=== PATIENT | female | born 2000 | race Caucasian/White ===

== ENCOUNTER 2020-05-22 14:47 | Emergency (ER) | payer OTHER ==
[~2020-05-22] VITALS: Ht 167.6 cm; Wt 96.4 kg
[2020-05-22 15:22] VITALS: TEMP 97.2
[2020-05-22] MEDS ORDERED: PROZAC40 MG PO (16:33)
[2020-05-22] MEDS ORDERED: PERCOCET 325 MG1 TA2 PO (17:34)
[2020-05-22] MEDS ORDERED: CRUTCHES MC (17:42)
[2020-05-22 18:01] VITALS: BP 123/72; PULSE 90
== END 2020-05-22 18:05 | disposition home or self-care (01) ==
LOC: COL.ER 14:47
DX: S82.842A Displaced bimalleolar fracture of left lower leg, initial encounter for closed fracture (principal); W17.89XA Other fall from one level to another, initial encounter; Y93.39 Activity, other involving climbing, rappelling and jumping off
CPT/HCPCS: J3010